=== PATIENT | female | born 1950 | race Caucasian/White ===

== ENCOUNTER → 2018-02-19 14:55 | Outpatient (CLI) | payer OTHER, SELFPAY ==
[2018-02-19 16:09] LABS: Bacteria Urine None Seen
[2018-02-19 16:41] LABS: Add Manual Diff / Slide Review NO; Basophils Percent Auto 0.7 % (0-2); Eosinophils Percent Auto 2.7 % (2-4); Hematocrit 37.3 % (36-46); Hemoglobin 12.7 g/dL (12.0-16.0); Lymphocytes Percent Auto 17.2 % (25-40); Mean Corpuscular HGB Conc 33.9 % (30-36); Mean Corpuscular Hemoglobin 27.1 PG (26-34); Mean Corpuscular Volume 80.1 fL (80-100); Monocytes Percent Auto 5.4 % (3-14); Neutrophils Absolute Auto 6900 /uL (3000-5900); Platelet Count 374 X10^3/uL (150-400); Red Blood Cell Count 4.66 X10^6/uL (4.0-5.2); Red Cell Distribution Width 14.3 % (11.6-14.8); White Blood Cell Count 9.3 X10^3/uL (4.5-11.0)
[2018-02-19 16:46] LABS: Blood Urea Nitrogen 21 mg/dL (7-17); Calcium 9.6 mg/dL (8.4-10.2); Carbon Dioxide 30 mmol/L (22-32); Chloride 97 mmol/L (98-107); Estimated Glomerular Filt Rate > 60.0 mL/min (>60); Glucose 81 mg/dL (80-110); HEMOLYSIS < 15 (0-50); Potassium 3.5 mmol/L (3.4-5.1); Sodium 141 mmol/L (137-145)
[2018-02-19 16:50] LABS: Hemoglobin A1C% w Est Avg Glu 6.8 % (4.0-6.0)
[2018-02-19 16:55] LABS: Appearance Urine UA CLEAR; Bilirubin Urine UA NEGATIVE (NEGATIVE); Color Urine UA YELLOW; Glucose Urine UA 1+ g/dL (Normal); Ketones Urine UA NEGATIVE (NEGATIVE); Leukocyte Esterase Urine UA TRACE (NEGATIVE); Nitrite Urine UA NEGATIVE (Negative); Occult Blood Urine UA 1+ (Negative); Protein Urine UA NEGATIVE (Negative); Specific Gravity Urine UA 1.025 (1.000-1.035); Urobilinogen Urine UA 0.2 E.U./dL (0.2)
[2018-02-19 17:00] LABS: RBC Urine 5-10/HPF (0-5/HPF); Squamous Epithelial Cell Urine 0-1 /HPF; WBC Urine 0-1/HPF (0-5/HPF)
[2018-02-19 17:01] LABS: Mucus Urine 1+ (Negative)
== END ==
PROVIDERS: Family Provider Family Medicine; PCP Family Medicine; Visit Provider Orthopaedic Surgery
DX: Z01.818 Encounter for other preprocedural examination (principal); Z01.812 Encounter for preprocedural laboratory examination; N39.9 Disorder of urinary system, unspecified; R73.09 Other abnormal glucose
CPT/HCPCS: 36415; 80048; 81001; 83036; 85025; 93005

== ENCOUNTER 2018-03-09 08:40 | Inpatient (IN) | payer MEDICARE, SELFPAY ==
[2018-02-19 09:56] VITALS: BMI 27.1
[2018-03-09] VITALS (13 sets, daily range): BP systolic 96–152; BP diastolic 46–66; PULSE 57–93; RESP 12–18; TEMP 35.6–36.6; O2SAT 90–99; BMI 27.1
--- NOTE | 2018-03-09 | DI.RAD.S_ITS ---
PROCEDURE: XR PELVIS 1-2V INDICATIONS: INTEROPERATIVE PELVIS FOR LEFT HIP REPLACEMENT TECHNIQUE: 1 view of the lower pelvis acquired. COMPARISON: [facility], MANUEL, PELVIS W UNILATERAL HIP RIGHT, 01/19/2014, 15:36. [facility] [place], [place], XR PELVIS WITH BILATERAL LATERAL HIPS, 11/26/2017, 15:59. FINDINGS: Bones: Patient is status post left hip arthroplasty, with hardware components in expected positions. The hip joint appears congruent. The visualized bony structures appear intact. Previous right hip arthroplasty is unchanged. Soft tissues: Overlying postoperative changes are noted. No suspicious soft tissue densities. IMPRESSION: New left hip arthroplasty as above. Dictated by: Sheyla Robledo M.D. on 03/09/2018 at 13:08 Approved by: Sheyla Robledo M.D. on 03/09/2018 at 13:09
--- NOTE | 2018-03-09 08:56 | DI.RAD.S_ITS ---
PROCEDURE: XR HIP W PEL IF DONE LT 2V INDICATIONS: post operative left hip TECHNIQUE: AP pelvis and lateral view of the left hip acquired. COMPARISON: [facility] [place], XR PELVIS WITH BILATERAL LATERAL HIPS, 11/26/2017, 15:59. FINDINGS: Bones: Patient is status post left hip arthroplasty, with hardware components in expected positions. The hip joint appears congruent. The visualized bony structures appear intact. Right hip arthroplasty is also noted appearing intact. Soft tissues: Overlying postoperative changes are noted. No suspicious soft tissue densities. IMPRESSION: New left hip arthroplasty as above. Dictated by: Sheyla Robledo M.D. on 03/09/2018 at 13:37 Approved by: Sheyla Robledo M.D. on 03/09/2018 at 13:38
[2018-03-09] MEDS: LACTATED RINGERS 1,000 ML 42 ML IV (09:24)
[2018-03-09] MEDS: VANCOMYCIN 1,000 MG/200 ML FROZ.PIGGY 200 MG IV (09:40)
[2018-03-09] MEDS: ACETAMINOPHEN 325 MG TABLET 975 MG PO ×3 (09:41→20:57)
[2018-03-09] MEDS: CELECOXIB 200 MG CAPSULE PO (09:42)
[2018-03-09] MEDS: PREGABALIN 75 MG CAPSULE PO (09:42)
--- NOTE | 2018-03-09 10:46 | PM.PREOP ---
Pre-operative Note Interval Note Pre-op Check: Yes History & Physical Reviewed by Physician and Yes Exam Performed Changes: No
--- NOTE | 2018-03-09 10:49 | P.OP_ITS ---
Operative Date/Time/Diagnoses Date of procedure: 03/09/18 Time of procedure: 12:46 Pre-op diagnosis: left hip OA, protrusion Post-op diagnosis: same Procedure & Clinicians Procedure: Left total hip arthroplasty Same procedure as scheduled: Yes Indications: The patient has had progressively worsening left hip pain with radiographic changes consistent with arthritis. Non-operative management has failed and the patient has requested total hip replacement. The risks, benefits and alternatives to surgery were discussed with the patient prior to proceeding. Risks discussed included, but were not limited to, failure to relieve pain, leg length discrepancy, dislocation, stiffness, infection, nerve damage, deep venous thrombosis, pulmonary embolism, stroke, coma, heart attack, permanent paralysis and , as well as the potential need for eventual revision of the prosthetic. Surgeon: Payal Meadows Orthopaedic Physician Assistant: Cindy Ellison Anesthesia Type: General and Spinal Operative Notes Findings: severe left hip osteoarthritis with mild protrusio, soft bone Closure Type: primary Specimen(s): none sent Implants & Drains: Meadows and Nephew R3 50, anthology SO 5, -3 head x 32 Applied: drain(s) Estimated Blood Loss (mL): 200 Blood products transfused: none Procedure in detail: The patient was seen in the pre-operative area, where the patient identified the left hip as the operative site and this was marked with my initials. The patient received pre-operative antibiotics and was taken to the operating room and placed on the operative table in the right lateral decubitus position after satisfactory anesthesia. A time cycle operator out was performed. The left leg was prepared from the ankle to the iliac crest with ChloroPrep in the usual fashion and draped through sterile drapes. The hip was approached through an approximately 20 cm incision centered over the greater trochanter and curving gently posteriorly as it went proximally. This was carried sharply to the fascia kenan, which was divided and retracted with a self retaining retractor. The trochanteric bursa was excised with care being taken to avoid the sciatic nerve, which was identified and protected throughout the case. The short external rotators were incised and the capsulomuscular flap was raised and tagged for later repair. The hip was dislocated, and a femoral neck osteotomy performed approximately 10 mm above the lesser trochanter. Retractors were placed around the femur. The canal was opened with a box cutting osteotome, followed by a T handled reamer and a lateralizing reamer. The chili pepper broach was then used, followed by sequential broaching until there was good stability of the broach in the femur. Retractors were placed to expose the acetabulum. The labrum and central soft tissues were removed. Reaming was performed initially going up in 2 mm increments, then 1 mm increments until good bite was obtained with an odd sized reamer. The cup 1 mm larger than the last reamer was then inserted using the appropriate anteversion guides. A trial neutral liner was placed. The broach was placed in the canal. A trial head and neck were then placed and the hip relocated and checked for leg length and stability. An intraoperative film confirmed the component position and no evidence of fracture. The patient was stable in the position of sleep, of squatting, and could be put through a range of motion with 45 degrees internal rotation without dislocation. At 90 degrees flexion, internal rotation to 70 degrees was possible before dislocation. The hip was felt to be long and thus the canal was additionally broached to counter sink it about 3mm. This provided good stability to the broach and hip. This was felt to be satisfactory and the appropriate components were opened, and the trials were removed. The acetabular liner was impacted into position. The final stem was then impacted into the prepared femoral canal. A brief Betadine soak was performed while trialing with head options. The hip was meticulously irrigated with normal saline. Finally the femoral head was impacted onto the stem. The acetabulum was cleared of all material and the hip relocated one final time. Her bone was felt to be soft, but the components were stable. The capsulomuscular flap was then repaired to the greater trochanter though an awl hole using the tag sutures. The short external rotators were repaired with a black braided nylon. A deep drain was placed and brought out anteriorly. The fascia kenan was closed with black braided nylon. The subcutaneous layer was closed with barbed sutures and SteriStrips. An Aquacel Ag dressing was applied and the patient was taken to recovery having tolerated the procedure well. Complications: none Condition: stable Disposition: Acute Care Plan for aftercare: The patient will be maintained on a standard total hip replacement protocol with weight bearing as tolerated and posterior hip precautions. The patient will receive Aspirin and sequential compression devices for DVT prophylaxis. The patient will be discharged home when safe for the home environment.
[2018-03-09] MEDS: CEFAZOLIN 2 GM/100 ML FROZ.PIGGY IV ×2 (11:16→20:55)
--- NOTE | 2018-03-09 11:36 | SUR.OPER ---
Lateral on padded OR bed. Gel axillary roll. Arms secured on padded armboard with pillow supporting top arm. Padded hip positioner braces x4 - anterior and posterior chest and pelvis. Additional gel pad used anterior pelvis. Gel pad under bottom leg from knee to foot and secured with tape over sheet.
[2018-03-09] MEDS: BUPIVACAINE 0.25% W/ EPI VIAL 50 ML INJ (11:43)
[2018-03-09] MEDS: BUPIVACAINE LIPOSOME 266 MG/20 ML VIAL INJ (11:43)
[2018-03-09] MEDS: POVIDONE-IODINE 15 ML, SODIUM CHLORIDE 0.9% 250 ML TOP (11:46)
--- NOTE | 2018-03-09 11:59 | PC.NURSE ---
Day shift: Pt not on AC unit at this time.
[2018-03-09] MEDS: LACTATED RINGERS 1,000 ML 125 ML IV ×2 (14:40→22:14)
[2018-03-09] MEDS: METFORMIN HCL 500 MG TABLET PO (17:20)
[2018-03-09] MEDS: glipiZIDE 5 MG TABLET PO (17:20)
--- NOTE | 2018-03-09 17:27 | PC.NURSE ---
Addendum entered by Nathalie Lynch, R.N. 03/09/18 22:57: 1830: Patient assisted to BS, no void. bladder scan done = 417 ml. 2019: Pt up to BSC, could not void. Bladder scan done = 463. In & out cath done with 600 ml clear yellow urine output. Original Note: Addendum entered by Nathalie Lynch R.N. 03/09/18 19:32: Patient has had no emesis for over an hour, has been dozing. 2L O2 sat 96%, respirations even with no observed distress. Original Note: Addendum entered by Nathalie Lynch, Divine.N. 03/09/18 19:28: Pt nauseated & had emesis x 3. Reports lightheadedness after PT transfered her into recliner, face pale. At some point O2 NC was taken off, I found patient alarming on continuous pulse ox at 82-85% 2L O2 reapplied. IV Zofran given. I found in chart that patient had received spinal anesthesia during surgery, but found no active orders in JUN. I notified Dr Power, the anesthesiologist inspector water pollution control, about this. She said she would enter orders for me. Original Note: Evening note: Monica awake, dozing at times, RA oxygen going as low as 82-84% while talking on phone. Applied 2L O2 with sats now 96-100% Face pale. Just worked with P.T., sitting in recliner, said I threw up a little, PT reports BP was stable after transfer. Pt does report light headed but want to sit here & try to eat some protein. Offered soup/toast or boat outfitting supervisor meal, she said I want to try this. Dietary sent her regular ada meal. I notified Dr Meadows of patient's report of only taking Metformin & Glipizide twice a day--I never take it three times. Order changed to bid. In regard to other order for Lotensin & HCTZ at 1700, I also notified Dr Meadows of borderline BP's of 102/49 and 100/56, she said to hold tonight's BP medications.
--- NOTE | 2018-03-09 17:38 | PT.IIE ---
Current Diagnoses Unilateral primary osteoarthritis, left hip (03/09/18) Surgery Performed Operation Date: 03/09/18 10:45 Actual Procedures p Total Hip Arthroplasty(Left) - Payal Meadows MD Surgical History (Last Updated 02/19/18 @ 10:07 by Valerie Ferrell, RN) History of bilateral tubal ligation (Acute) History of tonsillectomy (Acute) History of total right hip arthroplasty (Acute) Medical History (Last Updated 02/19/18 @ 13:13 by Valerie Ferrell RN) Arthritis (Acute) Arthropathy (Acute) Asthma (Acute) Chronic pain (Acute) Constipation (Acute) Fibromyalgia (Acute) HTN (hypertension) (Acute) History of (Acute) History of headache (Acute) History of pneumonia (Acute) History of use of contraceptive intrauterine device (IUD) (Acute) Hyperlipoproteinemia (Acute) Hypothyroid (Acute) Impaired vision (Acute) Low back pain (Acute) Myofascial pain syndrome (Acute) Myositis, unspecified (Acute) Postmenopausal (Acute) Postmenopausal bleeding (Acute) Skin cancer (Acute) Type II diabetes mellitus (Acute) Uterine polyp (Acute) Physical Therapy Inpatient Evaluation/Re-Eval M1 PT/OT-IP Prior Functional Status Start: 03/09/18 17:20 Freq: NEEDED Status: Active Protocol: Document 03/09/18 17:21 EA (Rec: 03/09/18 17:38 EA [id number]) Medical Review Prior Functional Status Medical History Reviewed Yes Diet/Fluid Consistency Regular Communication Normal Mobility and Gait Indep in all functional transfers and mobility with ability to walk > a block with no use of AD. Activities of Daily Living and IADL's Independent Social History Household Members friend(s) none Living Arrangements Apartment/Condo Number of Floors (Floors) One Floor Number of Stairs To Enter/Railing? 16 steps to get in the main apartment with rails to right side Home Equipment Front Wheel Walker Straight Cane Raised Toilet Seat w/Armrests Employment Status Retired Additional Social History Comment Lives alone; three friends are coming after discharge to hospital and will look after her. M2 PT-IP Current Condition Start: 03/09/18 17:20 Freq: NEEDED Status: Active Protocol: Document 03/09/18 17:21 EA (Rec: 03/09/18 17:38 EA [id number]) Physical Therapy Current Condition Current Condition Evaluation Date 03/09/18 Treatment Diagnosis s/p left DARNELL Onset Date 03/09/18 Precautions Posterior Hip Precautions No Hip Flexion > 90 degrees No Hip Internal Rotation No Hip Adduction Weight Bearing Status Weight Bearing Status Weight Bear as Tolerated M3 PT-IP Subjective Start: 03/09/18 17:20 Freq: NEEDED Status: Active Protocol: Document 03/09/18 17:21 EA (Rec: 03/09/18 17:38 EA [id number]) Subjective Physical Therapy Visit Type Type Initial Evaluation Visit Start Time 16:45 Visit Stop Time 17:25 Total Visit Minutes 40 Number of NURSE MONITORING Visits 0 Physical Therapy Visit Comments Patient Comments Patient would like to try to transfer in the chair for dinner. Patient Goals Patient would like to get independent in all functional transfers and mobility prior to discharge Therapy Pain Assessment Pain When Pain Assessed At Rest Pain Present Pain Present Pain Reported Location Left Posterior Hip Intensity 2 Description Acute M4 PT-IP Mobility and Gait Start: 03/09/18 17:20 Freq: NEEDED Status: Active Protocol: Document 03/09/18 17:21 EA (Rec: 03/09/18 17:38 EA [id number]) PT-Bed Mobility Assessment Supine to Sit Supine to Sit Standby Assistance Sit to Supine Sit to Supine Contact Guard Assistance Scooting Scooting to Edge of Bed Contact Guard Assistance PT-Transfer Assessment Sit to and From Stand Sit to and from Stand Contact Guard Assistance Equipment Transfer Assistive Device Front Wheeled Walker Transfers Transfer Destination Bed Chair Transfer Technique stepping Transfer Ability Level of Assist Contact Guard Assistance Gait Assessment Gait Gait Assistance Required: Contact Guard Assist Able to Maintain Weight Bearing Status Yes During Gait Assistive Devices Assistive Device Front Wheeled Walker Gait Deviations General Gait Pattern Ataxic Decreased Stride Length PT-Balance Assessment Sitting Balance and Reactions Static Sitting Balance Ability Good Dynamic Sitting Balance Ability Good Standing Balance and Reactions Static Standing Balance Ability Good Dynamic Standing Balance Ability Fair M5 PT-IP Objective Assessments Start: 03/09/18 17:20 Freq: NEEDED Status: Active Protocol: Document 03/09/18 17:21 EA (Rec: 03/09/18 17:38 EA [id number]) Orientation Orientation/Cognition Level of Alertness Alert Orientation Name Age Month Date Year Day of Week Place Language Function Ability No Deficits Noted Safety Awareness Understands Safety Issues Memory Description No Deficits Noted Gross Range of Motion Upper Extremity ROM Assessment Within Functional Limits Lower Extremity ROM Assessment Left Impaired Impairments N/A due to hip pre-cautions WFL Strength Upper Extremity Strength Assessment Within Functional Limits Lower Extremity Strength Assessment Left Impaired Hip N/A due to hip pre-caution with at least 3/5 strength Sensation Assessment Sensation Gross Sensation WNL Light Touch Intact Proprioception (Position) Intact M6 PT-IP Treatment Start: 03/09/18 17:20 Freq: NEEDED Status: Active Protocol: Document 03/09/18 17:21 EA (Rec: 03/09/18 17:38 EA [id number]) Physical Therapy Treatment Exercises Exercises Ankle Pumps Gluteal Sets Quad Sets Straight Leg Raises Education Education Provided Precautions Weight Bearing Status Post-Op Packet M7 PT-IP Assessment and Plan Start: 03/09/18 17:20 Freq: NEEDED Status: Active Protocol: Document 03/09/18 17:21 EA (Rec: 03/09/18 17:38 EA [id number]) PT Summary Assessment and Plan Potential Rehabilitation Potential Good Status of Condition at Evaluation Stable Summary Impairments Pain ROM Strength Balance Bed Mobility Transfers Gait Activity Tolerance Assessment Summary Pt demonstrates difficulty in all transfers and ambulation due to pain and weakness to LLE with fair grade standing dynamic balance. Patient requires assistance in all functional mobility and transfers for safety. Patient would benefit with skilled PT to reach functional goals prior to discharge. Goals Bed Mobility Goal Independent Transfer Goal Independent Gait Goal Independent Gait Distance 5 ft Other Goals 16 steps with single rails with CGA/SBA Days to Meet Goals 3 Frequency of Treatment Frequency Of Treatment Twice a Day Treatment Plan Physical Therapy Treatment Plan Bed Mobility Training Transfer Training Gait Training Therapeutic Exercise Balance Retraining Discharge Planning Hot or Cold Pack Neuromuscular Re-ed Coordination Retraining Manual Therapy Recommendations To Nursing Amount of Assist Needed 1 Person Assist Discharge Recommendations PT Discharge Recommendations Home with 28/10 Assist Home Health Other Discharge Recommendations Home health PT
[2018-03-09] MEDS: ONDANSETRON 4 MG/2 ML INJ IV (18:13)
[2018-03-09] MEDS: ASPIRIN EC 81 MG TABLET PO (20:57)
[2018-03-09] MEDS: DOCUSATE 100 MG CAPSULE PO (20:57)
[2018-03-09] MEDS: CYCLOBENZAPRINE 10 MG TABLET PO (21:02)
--- NOTE | 2018-03-09 21:04 | PC.NURSE ---
Pt with >400ml in bladder per bladder scan. In and out cath done per hospital protocol. Pt tolerated well, had 600ml of urine out.
[2018-03-10] VITALS (7 sets, daily range): BP systolic 99–123; BP diastolic 48–66; PULSE 60–82; RESP 16–17; TEMP 36.5–37.8; O2SAT 97–100
[2018-03-10] MEDS: ONDANSETRON 4 MG/2 ML INJ IV (00:44)
[2018-03-10] MEDS: CEFAZOLIN 2 GM/100 ML FROZ.PIGGY IV (03:39)
[2018-03-10 05:56] LABS: Hemoglobin 9.9 g/dL (12.0-16.0)
--- NOTE | 2018-03-10 08:29 | PC.NURSE ---
Pt a&o offers no overt c/o pain, answers questions appropriately. Makes needs known.
[2018-03-10] MEDS: glipiZIDE 5 MG TABLET PO ×2 (08:56→18:16)
[2018-03-10] MEDS: ACETAMINOPHEN 325 MG TABLET 975 MG PO ×3 (08:56→21:56)
[2018-03-10] MEDS: METFORMIN HCL 500 MG TABLET PO ×2 (08:56→18:17)
[2018-03-10] MEDS: DOCUSATE 100 MG CAPSULE PO ×2 (08:57→21:55)
[2018-03-10] MEDS: ASPIRIN EC 81 MG TABLET PO ×2 (08:57→21:54)
[2018-03-10] MEDS: MELOXICAM 7.5 MG TABLET 15 MG PO (08:58)
--- NOTE | 2018-03-10 09:25 | PM.PNPO.1 ---
Subjective Date Patient Seen: 03/10/18 Time Patient Seen: 09:25 Interval history: POD #1 status post left total hip arthroplasty with Dr. Meadows. Patient is having minimal pain today. ASA for DVT prophylaxis. Patient is diabetic and her blood sugars been well controlled. Patient has not mobilized with physical therapy yet. Exam Vital Signs (past 8 hours): - 03/10/18 06:11 03/10/18 07:35 Temperature 97.8 F 98.1 F Pulse Rate 66 60 Respiratory Rate 17 17 Blood Pressure 110/48 L 99/50 L Pulse Oximetry 100 99 Oxygen Delivery Method Nasal Cannula Oxygen Flow Rate 2 Narrative Exam Narrative: Patient is sitting at bedside chair no acute distress. She is alert and oriented x3. Dressing on left hip is CDI. Calves are soft, compressible, and nontender bilaterally. Pulses are symmetrical. Hemovac drain in place. Objective Labs Result Diagrams: 03/10/18 05:40 Labs: Laboratory Results - last 24 hr 03/10/18 05:40 Hgb 9.9 L Hct 29.0 L Assessment & Plan Post-op (1) S/P total hip arthroplasty: Current Visit: Yes Status: Acute Postoperative Procedures Operation Date: 03/09/18 10:45 Actual Procedures Side Surgeon p Total Hip Arthroplasty Left Payal Meadows MD Patient will start mobilizing with physical therapy today. She will follow posterior hip precautions. Continue ASA for DVT prophylaxis. Patient will likely discharge home tomorrow, once mobilizing safely and pain adequately controlled.
[2018-03-10] MEDS: TRAMADOL 50 MG TABLET PO ×2 (09:27→21:55)
--- NOTE | 2018-03-10 10:41 | CM.DANOTE ---
DCP: Case received, EMR reviewed and met with patient. Introduced self and role. DCP template completed with information currently available. Patient is a 67 year old female who admitted yesterday morning to the care of the hospitalist team. PCP: Dr. Rae. Payer: confirmed: Medicare Advantage. Patient came to hospital for procedure, Left Total Hip arthroplasty. Patient has had history of left hip Osteoarthritis. Met with patient in room. Patient alert and oriented. Lives alone in [place], and just moved into apartment upstairs. Stated that she has several friends who will be staying with her. Discussed options, such as outpatient physical therapy versus home health. Stated that it will be difficult for her to go anywhere in the next couple of weeks, since she's living upstairs. Mentioned home health options. Patient stated that she wanted this onsite case manager to discuss with triage nurse, Keshia, at Payal Chandler's office first. Discussed with Keshia. She stated that home health will be a good option for her. Can update patient later today. At this time, will be working with physical therapy team to see how she is doing first, has already been up to chair at this point. Spoke to Rosina at [facility] to see if she takes insurance. She asked to fax over face sheet. Will do so now. P: DCP to continue to follow. Home health may be the best option for patient, P.T/O.T. Karena Toscano RN/Superintendent Job
[2018-03-10] MEDS: INFLUENZA VACCINE 0.5 ML SYRINGE IM (10:49)
--- NOTE | 2018-03-10 11:41 | PT.IPTN ---
Current Diagnoses Unilateral primary osteoarthritis, left hip (03/09/18) Presence of unspecified artificial hip joint (03/09/18) Surgery Performed Operation Date: 03/09/18 10:45 Actual Procedures p Total Hip Arthroplasty(Left) - Payal Meadows MD Physical Therapy Treatment Note M2 PT-IP Current Condition Start: 03/09/18 17:20 Freq: NEEDED Status: Active Protocol: Document 03/09/18 17:21 EA (Rec: 03/09/18 17:38 EA [id number]) Physical Therapy Current Condition Current Condition Evaluation Date 03/09/18 Treatment Diagnosis s/p left DARNELL Onset Date 03/09/18 Precautions Posterior Hip Precautions No Hip Flexion > 90 degrees No Hip Internal Rotation No Hip Adduction Weight Bearing Status Weight Bearing Status Weight Bear as Tolerated M3 PT-IP Subjective Start: 03/09/18 17:20 Freq: NEEDED Status: Active Protocol: Document 03/10/18 11:00 CLB (Rec: 03/10/18 11:41 CLB [id number]) Subjective Physical Therapy Visit Type Type Treatment Note Visit Start Time 11:00 Visit Stop Time 11:25 Total Visit Minutes 25 Number of OIL WELL LOGGING ENGINEER Visits 1 Physical Therapy Visit Comments Patient Comments Pt willing to ambulate then would like to get back to bed. Therapy Pain Assessment Pain When Pain Assessed At Rest Pain Present Pain Present Pain Reported Location Left Posterior Hip Intensity 2 Scale Used Numeric (1 - 10) M4 PT-IP Mobility and Gait Start: 03/09/18 17:20 Freq: NEEDED Status: Active Protocol: Document 03/10/18 11:00 CLB (Rec: 03/10/18 11:41 CLB [id number]) PT-Bed Mobility Assessment Sit to Supine Sit to Supine Contact Guard Assistance Scooting Scooting to Edge of Bed Contact Guard Assistance PT-Transfer Assessment Sit to and From Stand Sit to and from Stand Contact Guard Assistance Equipment Transfer Assistive Device Gait Belt Front Wheeled Walker Transfers Transfer Destination Bed Transfer Technique stepping Transfer Ability Level of Assist Contact Guard Assistance Gait Assessment Comments Gait Comments Pt unable to ambulate due to drop in BP. M5 PT-IP Objective Assessments Start: 03/09/18 17:20 Freq: NEEDED Status: Active Protocol: Document 03/09/18 17:21 EA (Rec: 03/09/18 17:38 EA [id number]) Orientation Orientation/Cognition Level of Alertness Alert Orientation Name Age Month Date Year Day of Week Place Language Function Ability No Deficits Noted Safety Awareness Understands Safety Issues Memory Description No Deficits Noted Gross Range of Motion Upper Extremity ROM Assessment Within Functional Limits Lower Extremity ROM Assessment Left Impaired Impairments N/A due to hip pre-cautions WFL Strength Upper Extremity Strength Assessment Within Functional Limits Lower Extremity Strength Assessment Left Impaired Hip N/A due to hip pre-caution with at least 3/5 strength Sensation Assessment Sensation Gross Sensation WNL Light Touch Intact Proprioception (Position) Intact M6 PT-IP Treatment Start: 03/09/18 17:20 Freq: NEEDED Status: Active Protocol: Document 03/10/18 11:00 CLB (Rec: 03/10/18 11:41 CLB [id number]) Physical Therapy Treatment Exercises Exercises Ankle Pumps Gluteal Sets Quad Sets Straight Leg Raises Education Education Provided Precautions Weight Bearing Status M7 PT-IP Assessment and Plan Start: 03/09/18 17:20 Freq: NEEDED Status: Active Protocol: Document 03/10/18 11:00 CLB (Rec: 03/10/18 11:41 CLB [id number]) PT Summary Assessment and Plan Potential Rehabilitation Potential Good Status of Condition at Evaluation Stable Summary Impairments Pain ROM Strength Balance Bed Mobility Transfers Gait Activity Tolerance Assessment Summary Pt unable to ambulate due to BP. BP in sitting in chair 116 /60, standing 92/56, second standing BP 109/43, supine BP107/58, pt stated she was feeling better second supine BP 115/62. Pt feeling dizziness with standing, pt perform step transfer to bed and assisted to supine. Goals Bed Mobility Goal Independent Transfer Goal Independent Gait Goal Independent Gait Distance 5 ft Other Goals 16 steps with single rails with CGA/SBA Days to Meet Goals 3 Frequency of Treatment Frequency Of Treatment Twice a Day Treatment Plan Physical Therapy Treatment Plan Bed Mobility Training Transfer Training Gait Training Therapeutic Exercise Balance Retraining Discharge Planning Hot or Cold Pack Neuromuscular Re-ed Coordination Retraining Manual Therapy Recommendations To Nursing Amount of Assist Needed 1 Person Assist Discharge Recommendations PT Discharge Recommendations Home with 24/ Assist Home Health Other Discharge Recommendations Home health PT
--- NOTE | 2018-03-10 15:22 | PC.NURSE ---
Ortho: Feels good this afternoon. Had a tough morning, unable to void and had to get I/O cath. BP was 70's systolic per PT and PT was held. [place] much better this afternoon and was able to get up and amb, able to void 550mls. Later got up with PT and reported she was doing much better. Ortho mark no problems, PPP, feet =/warm. Brisk cap refill. Is following her precautions. Pt feels she has turned the corner. Cont w/poc.
--- NOTE | 2018-03-10 16:15 | PT.IPTN ---
Current Diagnoses Unilateral primary osteoarthritis, left hip (03/09/18) Presence of unspecified artificial hip joint (03/09/18) Surgery Performed Operation Date: 03/09/18 10:45 Actual Procedures p Total Hip Arthroplasty(Left) - Payal Meadows MD Physical Therapy Treatment Note M2 PT-IP Current Condition Start: 03/09/18 17:20 Freq: NEEDED Status: Active Protocol: Document 03/09/18 17:21 EA (Rec: 03/09/18 17:38 EA [id number]) Physical Therapy Current Condition Current Condition Evaluation Date 03/09/18 Treatment Diagnosis s/p left DARNELL Onset Date 03/09/18 Precautions Posterior Hip Precautions No Hip Flexion > 90 degrees No Hip Internal Rotation No Hip Adduction Weight Bearing Status Weight Bearing Status Weight Bear as Tolerated M3 PT-IP Subjective Start: 03/09/18 17:20 Freq: NEEDED Status: Active Protocol: Document 03/10/18 14:50 CLB (Rec: 03/10/18 16:15 CLB [id number]) Subjective Physical Therapy Visit Type Type Treatment Note Visit Start Time 14:50 Visit Stop Time 15:20 Total Visit Minutes 30 Number of COMPENSATION CONSULTING MANAGER Visits 2 Physical Therapy Visit Comments Patient Comments Pt willing to get OOB to ambulate and sit in chair. Therapy Pain Assessment Pain When Pain Assessed During Mobility Pain Present Pain Present Pain Reported Location Left Posterior Hip Intensity 1 M4 PT-IP Mobility and Gait Start: 03/09/18 17:20 Freq: NEEDED Status: Active Protocol: Document 03/10/18 14:50 CLB (Rec: 03/10/18 16:15 CLB [id number]) PT-Bed Mobility Assessment Supine to Sit Supine to Sit Standby Assistance Scooting Scooting to Edge of Bed Standby Assistance PT-Transfer Assessment Sit to and From Stand Sit to and from Stand Contact Guard Assistance Equipment Transfer Assistive Device Gait Belt Front Wheeled Walker Transfers Transfer Destination Chair Transfer Technique stepping Transfer Ability Level of Assist Contact Guard Assistance Comments Mobility Comments Pt needs cues for sequencing OOB. Gait Assessment Gait Gait Assistance Required: Contact Guard Assist Distance (Feet) 80 Able to Maintain Weight Bearing Status Yes During Gait Assistive Devices Assistive Device Gait Belt Front Wheeled Walker Gait Deviations General Gait Pattern Antalgic Decreased Feet Clearance Factors Limiting Gait Function Factors Limiting Gait Function Decreased Activity Tolerance Decreased Strength Pain Comments Gait Comments Pt able to ambulate with cues for sequencing steps with FWW. Pt able to ambulate with small step through gait pattern. Stair Climbing Assessment Comments Stair Climbing Comments not tested M5 PT-IP Objective Assessments Start: 03/09/18 17:20 Freq: NEEDED Status: Active Protocol: Document 03/09/18 17:21 EA (Rec: 03/09/18 17:38 EA [id number]) Orientation Orientation/Cognition Level of Alertness Alert Orientation Name Age Month Date Year Day of Week Place Language Function Ability No Deficits Noted Safety Awareness Understands Safety Issues Memory Description No Deficits Noted Gross Range of Motion Upper Extremity ROM Assessment Within Functional Limits Lower Extremity ROM Assessment Left Impaired Impairments N/A due to hip pre-cautions WFL Strength Upper Extremity Strength Assessment Within Functional Limits Lower Extremity Strength Assessment Left Impaired Hip N/A due to hip pre-caution with at least 3/5 strength Sensation Assessment Sensation Gross Sensation WNL Light Touch Intact Proprioception (Position) Intact M6 PT-IP Treatment Start: 03/09/18 17:20 Freq: NEEDED Status: Active Protocol: Document 03/10/18 14:50 CLB (Rec: 03/10/18 16:15 CLB [id number]) Physical Therapy Treatment Exercises Exercises Ankle Pumps Gluteal Sets Quad Sets Heel Slides Supine Hip Abduction Education Education Provided Precautions Weight Bearing Status M7 PT-IP Assessment and Plan Start: 03/09/18 17:20 Freq: NEEDED Status: Active Protocol: Document 03/10/18 14:50 CLB (Rec: 03/10/18 16:15 CLB [id number]) PT Summary Assessment and Plan Potential Rehabilitation Potential Good Status of Condition at Evaluation Stable Summary Impairments Pain ROM Strength Balance Bed Mobility Transfers Gait Activity Tolerance Assessment Summary Pt able to ambulate w/o dizziness. Pt BP in sitting 110/66, standing 106/52 and 123/59 after ambulating 10ft. Pt able to ambulate another 70ft. Pt able to perform all ther ex. Pt needs cues for bed mobility due to precautions and step sequencing with ambulation. Goals Bed Mobility Goal Independent Transfer Goal Independent Gait Goal Independent Gait Distance 5 ft Other Goals 16 steps with single rails with CGA/SBA Days to Meet Goals 3 Frequency of Treatment Frequency Of Treatment Twice a Day Treatment Plan Physical Therapy Treatment Plan Bed Mobility Training Transfer Training Gait Training Therapeutic Exercise Balance Retraining Discharge Planning Hot or Cold Pack Neuromuscular Re-ed Coordination Retraining Manual Therapy Recommendations To Nursing Amount of Assist Needed 1 Person Assist Discharge Recommendations PT Discharge Recommendations Home with 28/10 Assist Home Health Other Discharge Recommendations Home health PT
[2018-03-10] MEDS: hydroCHLOROthiazide 25 MG TABLET PO (18:16)
[2018-03-10] MEDS: BENAZEPRIL 20 MG TABLET 40 MG PO (18:17)
[2018-03-10] MEDS: CYCLOBENZAPRINE 10 MG TABLET PO (21:55)
--- NOTE | 2018-03-10 23:15 | PC.NURSE ---
Monica reports little to no pain, rates it at 1/10 after ambulating in room. Medicated with Tramadol and Flexeril at bedtime per her request. Drsg CDI, hemovac patent. CMS intact. VS stable tonight, RA oxygen 97% Fall precautions in place, pt instructed to call nurse for any needs.
--- NOTE | 2018-03-10 23:23 | PC.NURSE ---
Patient reports good pain control w flexaril and Tramadol combination, no nausea as of this note. good appetite and tolerating meals, no numbness no tingling. calls for help appropriately, no falls or injuries as of this note. Good urine output, passing flatus and +Bts. VSS, afebrile. Report to branden TOBIAS.
[2018-03-11] VITALS: BP 117/59; PULSE 76; RESP 16; TEMP 36.7; O2SAT 96
[2018-03-11 04:00] VITALS: BP 131/63; PULSE 87; RESP 16; TEMP 37; O2SAT 96
--- NOTE | 2018-03-11 06:50 | PC.NURSE ---
Hemovac removed. pt had 20cc out.
[2018-03-11 07:45] VITALS: BP 130/62; PULSE 87; RESP 16; TEMP 36.8; O2SAT 94
--- NOTE | 2018-03-11 08:15 | PM.DS.1 ---
History of Present Illness Date Patient Seen: 03/11/18 Time Patient Seen: 08:16 Chief complaint: 24892 LEFT TOTAL HIP ARTHROPLASTYCOPAY $100.00 Narrative: The patient has had progressively worsening left hip pain with radiographic changes consistent with arthritis. Non-operative management has failed and the patient has requested total hip replacement. The risks, benefits and alternatives to surgery were discussed with the patient prior to proceeding. Risks discussed included, but were not limited to, failure to relieve pain, leg length discrepancy, dislocation, stiffness, infection, nerve damage, deep venous thrombosis, pulmonary embolism, stroke, coma, heart attack, permanent paralysis and , as well as the potential need for eventual revision of the prosthetic. Discharge Providers Date of admission: 03/09/18 08:40 Primary care physician: Nick Rae MD Consults: 03/09/18 08:56 Consult to Anesthesiology Routine Comment: Consulting Provider: Anesthesiologist Reason for consultation: Regional block for post operative pain control 03/09/18 14:26 Consult to Discharge Planning Routine Comment: [facility] Consult to Physical Therapy Evaluate & Treat Comment: Physician Instructions: post op DARNELL protocol Consult to Respiratory Therapy Evaluate & Treat Comment: Physician Instructions: Evaluate and treat Discharge provider: Cindy Ellison PA-C Discharge Date: 03/11/18 Summary Discharge Diagnosis: s/p left total hip arthroplasty Hospital Course: Monica admitted for left total hip arthroplasty with Dr. Meadows, and she consented to procedure. Hospital course was unremarkable. On postop day 2. Patient was ready to go home. She is eating and voiding without difficulty or assistance. She has been up and ambulating with physical therapy throughout her stay. Status at Discharge Functional status at discharge: uses cane/walker Exam Vital Signs (past 8 hours): - 03/11/18 04:00 Temperature 98.6 F Pulse Rate 87 Respiratory Rate 16 Blood Pressure 131/63 Pulse Oximetry 96 Oxygen Delivery Method Room Air Oxygen Flow Rate 0 Narrative Exam Narrative: Patient lying in bed in no acute distress. She is alert and oriented x3. Dressing on left hip is CDI. It is starting to peel up, so nursing will change it prior to discharge. Calves are soft, compressible, nontender bilaterally. Sensation intact light touch throughout bilateral lower extremities. She is able to actively dorsiflex plantar flex. Patient's pain is well controlled with tramadol. She would like to go on this for home pain medication. No complaints this morning. Objective Labs Result Diagrams: 03/10/18 05:40 Discharge Plan Discharge Plan Patient Disposition: Home Discharge comment: Dc home this afternoon Discharge Med Rec/Prescriptions Prescriptions: New tramadol 50 mg Tablet 50 mg PO Q6H PRN (Reason: Pain, Mild (1-3)) Qty: 60 RF: 0 Continue cyclobenzaprine 10 mg Tablet 10 mg PO BEDTIME RF: 0 metformin 500 mg Tablet 500 mg PO TID RF: 0 ibuprofen 200 mg Capsule 400 mg PO QID PRN (Reason: Pain) RF: 0 aspirin 325 mg Tablet,Delayed Release (Dr/Ec) 650 mg PO Q4-6H PRN (Reason: Pain) RF: 0 hydrochlorothiazide 25 mg Tablet 25 mg PO QPM RF: 0 benazepril 40 mg Tablet 40 mg PO QPM RF: 0 glipizide 5 mg Tablet 5 mg PO TID RF: 0 naproxen sodium [Aleve] 220 mg Capsule 220 mg PO BID MDD Not listed PRN (Reason: pain) RF: 0 meloxicam 15 mg Tablet 15 mg PO DAILY RF: 0 Discontinued tramadol 50 mg Tablet 50 mg PO Q6H PRN (Reason: pain) RF: 0 Follow up/Referrals: Payal Meadows MD [Physician] - (Follow up in 5-7 days with LUCY) Provider Discharge Instructions Activity: Posterior hip precautions Skin/Wound/Dressing Care Report to your healthcare provider any signs of infection, such as:: chills, fever and increased pain Visit Report/Discharge Packet Instructions: DI for Hip Replacement Discharge Data Primary Care Provider: Nick Rae Attending Provider: Payal Meadows Admit Date/Time: 03/09/18 08:40
[2018-03-11] MEDS: DOCUSATE 100 MG CAPSULE PO (09:28)
[2018-03-11] MEDS: METFORMIN HCL 500 MG TABLET PO (09:28)
[2018-03-11] MEDS: ASPIRIN EC 81 MG TABLET PO (09:28)
[2018-03-11] MEDS: MELOXICAM 7.5 MG TABLET 15 MG PO (09:28)
[2018-03-11] MEDS: glipiZIDE 5 MG TABLET PO (09:28)
[2018-03-11] MEDS: ACETAMINOPHEN 325 MG TABLET 975 MG PO (09:28)
--- NOTE | 2018-03-11 10:10 | PT.IPTN ---
Current Diagnoses Unilateral primary osteoarthritis, left hip (03/09/18) Presence of unspecified artificial hip joint (03/09/18) Surgery Performed Operation Date: 03/09/18 10:45 Actual Procedures p Total Hip Arthroplasty(Left) - Payal Meadows MD Physical Therapy Treatment Note M2 PT-IP Current Condition Start: 03/09/18 17:20 Freq: NEEDED Status: Active Protocol: Document 03/09/18 17:21 EA (Rec: 03/09/18 17:38 EA [id number]) Physical Therapy Current Condition Current Condition Evaluation Date 03/09/18 Treatment Diagnosis s/p left DARNELL Onset Date 03/09/18 Precautions Posterior Hip Precautions No Hip Flexion > 90 degrees No Hip Internal Rotation No Hip Adduction Weight Bearing Status Weight Bearing Status Weight Bear as Tolerated M3 PT-IP Subjective Start: 03/09/18 17:20 Freq: NEEDED Status: Active Protocol: Document 03/11/18 10:03 SA (Rec: 03/11/18 10:10 SA [id number]) Subjective Physical Therapy Visit Type Type Treatment Note Visit Start Time 08:57 Visit Stop Time 09:30 Total Visit Minutes 33 Number of CLEAN UP PERSON Visits 3 Physical Therapy Visit Comments Patient Comments Pt sitting up in chair and agreeable to PT this AM. Therapy Pain Assessment Pain When Pain Assessed During Mobility Pain Present Pain Present Pain Reported Location Left Posterior Hip Intensity 1 Scale Used Numeric (1 - 10) Pain Management Techniques Re-positioning Timing of Activity with Medications M4 PT-IP Mobility and Gait Start: 03/09/18 17:20 Freq: NEEDED Status: Active Protocol: Document 03/11/18 10:03 SA (Rec: 03/11/18 10:10 SA [id number]) PT-Transfer Assessment Sit to and From Stand Sit to and from Stand Contact Guard Assistance Equipment Transfer Assistive Device Gait Belt Front Wheeled Walker Transfers Transfer Destination Chair Transfer Technique Stand Step Pivot Transfer Ability Level of Assist Contact Guard Assistance Comments Mobility Comments Pt manages FWW well with good safety awarenss, able to recite hip precautions. Gait Assessment Gait Gait Assistance Required: Contact Guard Assist Distance (Feet) 100 Able to Maintain Weight Bearing Status Yes During Gait Assistive Devices Assistive Device Gait Belt Front Wheeled Walker Gait Deviations General Gait Pattern Antalgic Decreased Stride Length Decreased Feet Clearance Factors Limiting Gait Function Factors Limiting Gait Function Decreased Activity Tolerance Decreased Strength Pain Comments Gait Comments Cues for upright posture and increasing WBing through LLE. Perkins walks around room and into adam totaling about 100 feet. Stair Climbing Assessment Evaluation Level of Assist On Stairs Contact Guard Assistance Devices Stair Climbing Assistive Devices Left Railing Right Railing Technique/Endurance Stair Climbing Direction Ascend and Descend Stair Climbing Technique Step to Step Number of Steps Climbed 3 Query Text: Stair Climbing Set # Repetitions (reps) 2 Comments Stair Climbing Comments Cues for safe technique, pt able to ascend/descend safely with CGA and B or single rail with increased time. M5 PT-IP Objective Assessments Start: 03/09/18 17:20 Freq: NEEDED Status: Active Protocol: Document 03/09/18 17:21 EA (Rec: 03/09/18 17:38 EA [id number]) Orientation Orientation/Cognition Level of Alertness Alert Orientation Name Age Month Date Year Day of Week Place Language Function Ability No Deficits Noted Safety Awareness Understands Safety Issues Memory Description No Deficits Noted Gross Range of Motion Upper Extremity ROM Assessment Within Functional Limits Lower Extremity ROM Assessment Left Impaired Impairments N/A due to hip pre-cautions WFL Strength Upper Extremity Strength Assessment Within Functional Limits Lower Extremity Strength Assessment Left Impaired Hip N/A due to hip pre-caution with at least 3/5 strength Sensation Assessment Sensation Gross Sensation WNL Light Touch Intact Proprioception (Position) Intact M6 PT-IP Treatment Start: 03/09/18 17:20 Freq: NEEDED Status: Active Protocol: Document 03/11/18 10:03 SA (Rec: 03/11/18 10:10 [id number]) Physical Therapy Treatment Exercises Exercises Ankle Pumps Gluteal Sets Quad Sets Heel Slides Supine Hip Abduction Education Education Provided Precautions Weight Bearing Status M7 PT-IP Assessment and Plan Start: 03/09/18 17:20 Freq: NEEDED Status: Active Protocol: Document 03/11/18 10:03 SA (Rec: 03/11/18 10:10 [id number]) PT Summary Assessment and Plan Potential Rehabilitation Potential Good Status of Condition at Evaluation Stable Frequency of Treatment Frequency Of Treatment Twice a Day Recommendations To Nursing Amount of Assist Needed 1 Person Assist Discharge Recommendations PT Discharge Recommendations Home with 24/7 Assist Home Health Other Discharge Recommendations Home health PT
--- NOTE | 2018-03-11 12:43 | CM.DPC ---
DCP: continued: Case received and pt with d/c to home orders. EMR reviewed and noted plan for home with [facility]. Requested that DAVIE Blanton follow up on the Mary ROMANO referral that was initiated yesterday by Rahul Yang (see her pending notes). Met then with pt and her friend. Pt says she is eager for home. This is her second hip replacement so she is feeling comfortable with her home plan. Is looking for PT and OT to do some further checking with her in her apt setting to make sure she is following her precautions there. Has friends for support but no one to stay the night and I am very comfortable with that.. Frank reported that Rosina/Mary ROMANO had confirmed that the payer: apparently an [place] [facility] plan will accept pt and can go out in a timely way. Final HH orders received and Frank will fax now. Mary ROMANO brochure given to pt.
--- NOTE | 2018-03-11 13:33 | CM.DPC ---
Spoke with Rosina Mckenna regarding [employer] [place]. They [place] and will open for service.
--- NOTE | 2018-03-11 13:48 | CM.DPC ---
Discharge packet faxed to Mary Morin
== END 2018-03-11 12:38 | disposition home health service (06) | DRG 470 ==
PROVIDERS: Admitting Provider Orthopaedic Surgery; Family Provider Family Medicine; PCP Family Medicine; Visit Provider Orthopaedic Surgery
PROC: 0SRB0JZ Replacement of Left Hip Joint with Synthetic Substitute, Open Approach (ICD-10-PCS; CPT 27130; principal; 2018-03-09 10:45)
DX: M16.12 Unilateral primary osteoarthritis, left hip (principal); E11.9 Type 2 diabetes mellitus without complications; I10 Essential (primary) hypertension; M79.7 Fibromyalgia; Z96.641 Presence of right artificial hip joint; Z79.84 Long term (current) use of oral hypoglycemic drugs; E78.5 Hyperlipidemia, unspecified
CPT/HCPCS: 36415; 72170; 73502; 82962; 85014; 85018; 90471; 90656; 94760; 97110; 97116; 97161; 97530; 97535; C1776; C9290; J0690; J2250; J2274; J2405; J2704; J3010; J3370; Q2038

== ENCOUNTER → 2018-06-29 11:17 | Outpatient (CLI) | payer OTHER, MEDICARE, SELFPAY ==
[2018-03-09 14:32] VITALS: BMI 27.1
--- NOTE | 2018-06-29 | DI.RAD.S_ITS ---
PROCEDURE: XR CHEST 2V INDICATIONS: COUGH TECHNIQUE: 2 views of the chest were acquired. COMPARISON: [facility], , CHEST 2 VIEW, 03/28/2017, 17:17. None. FINDINGS: Surgical changes and devices: None. Lungs and pleura: Lungs are clear. No pleural effusions or pneumothorax. Mediastinum: Mediastinal contours are normal. Heart size is normal. Bones and chest wall: No suspicious bony abnormalities. Soft tissues appear unremarkable. IMPRESSION: No acute cardiopulmonary disease. Dictated by: Olayinka Pleitez M.D. on 06/29/2018 at 14:14 Approved by: Olayinka Pleitez M.D. on 06/29/2018 at 14:16
--- NOTE | 2018-06-29 | DI.MG.S_ITS ---
BILATERAL DIGITAL SCREENING MAMMOGRAM 3D/2D WITH CAD: 06/29/2018 CLINICAL: Routine screening. Comparison is made to exams dated: 03/13/2016 mammogram - [facility] and 08/11/2009 mammogram - [facility]. There are scattered fibroglandular elements in both breasts. Current study was also evaluated with a Computer Aided Detection (CAD) system. There is a mole marker on the left breast. No significant masses, calcifications, or other findings are seen in either breast. There has been no significant interval change. IMPRESSION: NEGATIVE There is no mammographic evidence of malignancy. A 1 year screening mammogram is recommended. This exam was interpreted at Station ID: [id number]. NOTE: For mammograms, a report in lay terms will be sent to the patient. Approximately 15% of breast malignancies will not be visualized mammographically. In the management of a palpable breast mass, a negative mammogram must not discourage biopsy of a clinically suspicious lesion. Electronically Signed By: Tomasz slaughter/catalina:06/29/2018 18:17:06 letter sent: Normal Exam ACR BI-RADS Category 1: Negative [id number]
--- NOTE | 2018-07-03 15:49 | PM.PFT.1 ---
Pulmonary Function Test Referral & Results Date Patient Seen: 06/29/18 Requesting provider: Nick Rae Indication: J17 Results: The spirometry demonstrates an FVC of 2.15 L which is 73% of predicted. The FEV1 was measured at 1.50 L which is 60% of predicted. The FEV1/FVC ratio was 70 which is 92% of predicted. Following the administration of bronchodilator there was 52% improvement in FEF 25-75%. Lung volumes show an SVC of 2.33 L which is 83% of predicted. The diffusing capacity was measured at 17.43 which is 76% of predicted. No hemoglobin value was provided, so no correction for potential anemia could be made, if appropriate. The maximum voluntary ventilation was reduced Interpretation: This study demonstrates moderately severe obstructive lung disease based on reduction in FEV1. There is some evidence of limited benefit following bronchodilator based on improvement in FEF 25-75% as above There is minimal reduction in lung volumes suggesting perhaps mild restrictive lung disease There is also minimal reduction in diffusing capacity suggesting some element of disease the capillary alveolar level Clinical correlation suggested
== END ==
PROVIDERS: PCP Family Medicine; Visit Provider Family Medicine
DX: Z12.31 Encounter for screening mammogram for malignant neoplasm of breast (principal); J18.8 Other pneumonia, unspecified organism; R05 Cough
CPT/HCPCS: 71046; 77063; 77067; 94060; 94726; 94729

== ENCOUNTER 2018-08-14 08:57 | Day surgery (SDC) | payer MEDICARE, SELFPAY ==
[2018-03-09 14:32] VITALS: BMI 27.1
[2018-07-30 15:12] VITALS: BMI 26.9
--- NOTE | 2018-08-14 | PATH_ITS ---
[facility] Accession Number: [id number] . 01 Material submitted: . PART A: endometrium - ENDOMETRIAL CURRETTAGE PART B: endometrium - ENDOMETRIAL BIOPSIES . 02 Diagnosis: A. Endometrial Curettings: Endometrial adenocarcinoma, favor high grade. Please see comment. . B. Endometrial Biopsies: Endometrial adenocarcinoma, favor high grade. Please see comment. MRV/08/17/2018 . 02 Comment: Parts A and B: The adenocarcinoma demonstrates focal clear cell differentiation; complete characterization may best be performed on the excised specimen. . Results discussed with Dr. Kim on 08/17/2018 at approximately 2:40 p.m. . The slides were reviewed by my colleagues, Drs. Riggins and Jenny. . 02 Electronically signed: . Malka Luevano MD, Pathologist NPI- [id number] . 01 Gross description: . Part A: ENDOMETRIAL CURRETTAGE: Received in formalin are minute fragments of mucoid and hemorrhagic material measuring 2.5 x 2.0 x 0.5 cm in aggregate. Submitted in toto in 1 cassette. Part B: ENDOMETRIAL BIOPSIES: Received in formalin are minute fragments of mucoid and hemorrhagic material measuring 2.5 x 2.2 x 0.5 cm in aggregate. Submitted in toto in 1 cassette. /CKI /CKI . 02 Pathologist provided ICD-10: C54.1 . 02 CPT . 181164, [id number] Performed at: 01 [facility] [address] [place] [address], [place], [place] [id number] MD Kike Meza MD Phone: [phone] Performed at: 02 [facility] [address] [place], [place] [id number] MD Rosita Riggins MD Phone: [phone]
[2018-08-14 09:13] VITALS: BP 110/72; PULSE 90; RESP 15; TEMP 36.8; O2SAT 97; BMI 26.9
[2018-08-14] MEDS: LACTATED RINGERS 1,000 ML 100 ML IV (09:38)
--- NOTE | 2018-08-14 09:42 | P.HPOB_ITS ---
History of Present Illness Reason for admission: vaginal bleeding (post menopausal bleeding) Narrative: Monica Quiroz is a 68 year old female admitted for hysteroscopy D+C for postmenopausal bleeding [facility] Medical History (Updated 08/14/18 @ 09:42 by Sheila Kim MD) Endocervical polyp (Acute ~2018) Obstructive lung disease (Acute) Arthritis (Acute) Arthropathy (Acute) Asthma (Acute) Chronic pain (Acute) Constipation (Acute) Fibromyalgia (Acute) HTN (hypertension) (Acute) History of (Acute) History of headache (Acute) History of pneumonia (Acute) History of use of contraceptive intrauterine device (IUD) (Acute) Hyperlipoproteinemia (Acute) Hypothyroid (Acute) Impaired vision (Acute) Low back pain (Acute) Myofascial pain syndrome (Acute) Myositis, unspecified (Acute) Postmenopausal (Acute) Postmenopausal bleeding (Acute) Skin cancer (Acute) Type II diabetes mellitus (Acute) Uterine polyp (Acute) Surgical History (Updated 07/30/18 @ 15:19 by Petty Rankin RN) History of total left hip arthroplasty (Acute 03/11/18) History of bilateral tubal ligation (Acute) History of tonsillectomy (Acute) History of total right hip arthroplasty (Acute) Social History household members: friend(s) and none Smoking Status: Never smoker alcohol intake: current Social History household members: friend(s) and none Smoking Status: Never smoker alcohol intake: current Meds Home Medications Medication Instructions Recorded Confirmed Type aspirin 650 mg PO Q4-6H PRN 02/19/18 07/08/18 History benazepril 40 mg PO QPM 02/19/18 07/30/18 History cyclobenzaprine 10 mg PO BEDTIME 02/19/18 07/30/18 History glipizide 5 mg PO TID 02/19/18 07/30/18 History hydrochlorothiazide 25 mg PO QPM 02/19/18 07/30/18 History ibuprofen 400 mg PO QID PRN 02/19/18 07/30/18 History metformin 500 mg PO TID 02/19/18 07/30/18 History naproxen sodium [Aleve] 220 mg PO BID PRN MDD Not listed 02/19/18 07/30/18 History meloxicam 15 mg PO DAILY 12/03/18 04/25/19 History tramadol 50 mg PO BEDTIME 08/14/18 08/14/18 History Allergies Allergy/AdvReac Type Severity Reaction Status Date / Time cephalexin Allergy Unknown Rash Verified 08/14/18 09:14 Review of Systems Review of Systems Patient with unusual vaginal discharge and bleeding postmenopausal without pain. All systems reviewed & are unremarkable except as noted in HPI and below Exam Vital Signs (past 8 hours): - 08/14/18 09:13 Temperature 98.3 F Pulse Rate 90 Respiratory Rate 15 Blood Pressure 110/72 Pulse Oximetry 97 Oxygen Delivery Method Room Air Narrative Exam Narrative: Chief Complaint: post menopausal bleeding Note: Principal diagnosis: postmenopausal bleeding with thicked endometrium on US Planned procedure: hysteroscopy, D+C removal of any intrauterine pathology History of present illness: Patient is a 68-year-old who has been having intermittent mucousy, watery vaginal discharge and bleeding. She had a Pap smear that was unsatisfactory but negative high-risk HPV and removal of a benign endocervical polyp 1 year ago. She continued to have bleeding and so underwent a vaginal ultrasound on 11/26/2017 that showed a complex avascular fluid collection within the endometrial canal with the endometrium measuring 8.9 mm. Patient was to be scheduled for hysteroscopy D&C however she ended up having a hip replacement so delayed her surgery. The physician she was seeing at would be has since left the practice so she came me to me for evaluation. Patient has continued to have bleeding sometimes heavier since the last ultrasound. Patient is ready to proceed with hysteroscopy D&C. Physical exam: HEENT exam within normal limits. Lungs are clear to au scultation and percussion. Abdomen is soft, nontender. normal external genitalia, vagina, cervix. Uterus is not enlarged nontender. No adnexal masses or tenderness. Extremities without edema and nontender. Consent form was reviewed with the patient. Risk of perforation causing damage to internal structures, infection, bleeding, complication from anesthetic were discussed with patient. Consent form was signed and questions answered. Copy offered to the patient. Assessment & Plan (1) Postmenopausal bleeding: Current visit: Yes Status: Acute Assessment & Plan narrative: Patient with postmenopausal bleeding and unusual discharge here for hysteroscopy D&C. Patient states she has pain medicine at home does not need any further pain medicine. Time Spent With Patient Time with patient: less than 15 minutes
--- NOTE | 2018-08-14 09:42 | PM.PREOP ---
Pre-operative Note Interval Note History & Physical reviewed/Exam performed by Physician: Yes Changes to H&P: No
--- NOTE | 2018-08-14 10:26 | SUR.OPER ---
Lithotomy on padded OR bed, head on pillow, arms secured on padded arm boards at <90 degrees abduction. Legs secured in padded yellow fins stirrups.
--- NOTE | 2018-08-14 10:36 | PM.OP.1 ---
Operative Date/Time/Diagnoses Date of procedure: 08/14/18 Time of procedure: 10:36 Pre-op diagnosis: Postmenopausal bleeding Post-op diagnosis: same Procedure & Clinicians Procedure: Hysteroscopy D&C with resection endometrium Same procedure as scheduled: Yes Indications: Postmenopausal bleeding Surgeon: Sheila Kim Click Yes if Unassisted: Yes Anesthesia Type: General Operative Notes Findings: Thickened endometrium with frondlike projections likely endometrial carcinoma Closure Type: not applicable Specimen(s): other (D&C and resected areas of endometrial lining) Estimated Blood Loss (mL): 5 Blood products transfused: none Procedure in detail: The patient was brought to the operating room where she underwent general anesthesia. She was placed in low stirrups She was prepped and draped in usual sterile fashion with pulsatile stockings in place and functional, warming in place. Her bladder was drained with in and out catheter. A single-tooth tenaculum was placed on the anterior lip of the cervix and the uterus dilated to #8 Hegar dilator. The hysteroscope was placed into the uterus with a sorbitol solution running and under constant suction. A curettage was performed. The resecting loop set at 80 W of cutting was used to resect did some deeper areas of the endometrium. The endometrial curettage and biopsies were sent to pathology. The patient went to recovery room in good condition counts of instruments and sponges were correct. Estimated blood loss less than 5 mL. The sorbitol solution I=O approximately 3000 mL. Complications: none Condition: stable Disposition: same day surgery Plan for aftercare: Treatment of follow-up based on biopsy results
[2018-08-14 10:38] VITALS: BP 112/55; PULSE 86; RESP 11; TEMP 36.3; O2SAT 93
[2018-08-14 10:48] VITALS: BP 112/58; PULSE 86; RESP 11; O2SAT 93
[2018-08-14 11:09] VITALS: BP 112/63; PULSE 84; RESP 16; TEMP 36.6; O2SAT 95
--- NOTE | 2018-08-14 11:10 | SUR.PHASEII ---
pt tolerating po fluids, denies any pain or discomfort, waiting to speak with Dr Kim
--- NOTE | 2018-08-14 11:20 | SUR.PHASEII ---
DR LOERA AT BEDSIDE SPEAKING WITH PT
[2018-08-14 11:30] VITALS: BP 118/76; PULSE 81; RESP 14; TEMP 36.4; O2SAT 98
== END 2018-08-14 11:40 | disposition home or self-care (01) ==
PROVIDERS: PCP Family Medicine; Visit Provider Specialist
PROC: 0UDB8ZZ Extraction of Endometrium, Via Natural or Artificial Opening Endoscopic (ICD-10-PCS; CPT 58558; principal; 2018-08-14 10:00)
DX: C54.1 Malignant neoplasm of endometrium (principal); I10 Essential (primary) hypertension; M79.7 Fibromyalgia; E03.9 Hypothyroidism, unspecified; E11.9 Type 2 diabetes mellitus without complications; Z79.84 Long term (current) use of oral hypoglycemic drugs
CPT/HCPCS: 58558; J1100; J1885; J2704; J3010

== ENCOUNTER 2018-10-29 13:09 | Day surgery (SDC) | payer MEDICARE, SELFPAY ==
[2018-03-09 14:32] VITALS: BMI 27.1
[2018-10-22 12:21] VITALS: BMI 27.1
[2018-10-29] VITALS (10 sets, daily range): BP systolic 132–159; BP diastolic 73–91; PULSE 72–96; RESP 12–19; TEMP 36.3–37.3; O2SAT 94–99; BMI 27.1
[2018-10-29] MEDS: LACTATED RINGERS 1,000 ML 100 ML IV (14:41)
[2018-10-29] MEDS: INSULIN REGULAR 100 UNIT/ML 3 ML VIAL IV (14:46)
--- NOTE | 2018-10-29 15:02 | PM.HP.1 ---
History of Present Illness Date Patient Seen: 10/29/18 Time Patient Seen: 15:00 Chief complaint: [id number] PORT PLACEMENT Narrative: The patient is a woman who has endometrial cancer. She has lymph node involvement. She is brought in to have a Port-A-Cath placed. Patient History Medical History History of hysterectomy (Acute ~09/2018) Arthritis (Chronic) Arthropathy (Chronic) Asthma (Chronic) Chronic pain (Chronic) Constipation (Chronic) Endocervical polyp (Chronic ~2017) Fibromyalgia (Chronic ~1999) HTN (hypertension) (Chronic) History of headache (Chronic) History of use of contraceptive intrauterine device (IUD) (Chronic) Hyperlipoproteinemia (Chronic) Hypothyroid (Chronic) Impaired vision (Chronic) Low back pain (Chronic) Myofascial pain syndrome (Chronic) Myositis, unspecified (Chronic) Obstructive lung disease (Chronic) Postmenopausal (Chronic) Postmenopausal bleeding (Chronic) Rosacea (Chronic) Skin cancer (Chronic ~2003) Type II diabetes mellitus (Chronic ~2007) Uterine polyp (Chronic) Chicken pox (Resolved) History of pneumonia (Resolved) Measles (Resolved) Mumps (Resolved) Surgical History Anesthesia (Resolved) History of (Resolved) History of bilateral tubal ligation (Resolved) History of tonsillectomy (Resolved) History of total left hip arthroplasty (Resolved 03/11/18) History of total right hip arthroplasty (Resolved ~01/2014) Family History (Updated 08/22/18 @ 20:49 by Zoie Novoa) Father Stroke Mother Cancer Social History household members: friend(s) and none Smoking Status: Never smoker alcohol intake: current Family & Social History Family History Father Stroke Mother Cancer Social History: household members friend(s),none Prior Living Arrangements Apartment/Condo Safety & Behavioral: Feels Safe in Current Yes Environment Been Physically Hurt or No Threatened By a Person Suicidal Ideation Description None Suicide Plan Description No Plan Tobacco & Substance use: Smoking Status Never smoker alcohol intake current alcohol intake frequency holiday/special occasion Substance Use Type does not use Meds Home Medications Medication Instructions Recorded Confirmed Type aspirin 650 mg PO Q4-6H PRN 02/19/18 10/29/18 History benazepril 40 mg PO QPM 02/19/18 10/29/18 History cyclobenzaprine 10 mg PO BEDTIME 02/19/18 10/29/18 History glipizide 5 mg PO BID 02/19/18 10/29/18 History hydrochlorothiazide 25 mg PO QPM 02/19/18 10/29/18 History ibuprofen 400 mg PO QID PRN 02/19/18 10/29/18 History naproxen sodium [Aleve] 220 mg PO BID PRN MDD Not listed 02/19/18 10/29/18 History meloxicam 15 mg PO DAILY 03/09/18 10/29/18 History tramadol 50 mg PO BEDTIME 08/14/18 10/29/18 History celecoxib [Celebrex] 100 mg PO BID 10/29/18 10/29/18 History levocetirizine 5 mg PO QPM 10/29/18 10/29/18 History Allergies Allergy/AdvReac Type Severity Reaction Status Date / Time cephalexin Allergy Unknown Rash Verified 10/29/18 14:29 Review of Systems Review of Systems All systems reviewed & are unremarkable except as noted in HPI and below Exam Vital Signs (past 8 hours): - 10/29/18 14:17 Temperature 97.5 F L Pulse Rate 96 H Respiratory Rate 16 Blood Pressure 132/76 Pulse Oximetry 94 Oxygen Delivery Method Room Air Narrative Exam Narrative: Co Operative no apparent distress. Lungs are clear to auscultation no rales or rhonchi. Heart regular rate and rhythm no murmur gallop. Abdomen is soft nontender without mass. No nodes in the neck or supraclavicular areas. No rashes on the surface of the skin of her chest. Assessment & Plan Assessment & Plan narrative: Endometrial cancer. Plan is to place a port. I have discussed the procedure and rationale with her. Risks of bleeding, infection, lung collapse which might require the placement of a chest tube, and blood clot with arm swelling and possible pulmonary embolism all discussed. She appears to understand wishes to proceed.
[2018-10-29] MEDS: CLINDAMYCIN 900 MG/50 ML PIGGYBACK 50 MG IV (15:18)
--- NOTE | 2018-10-29 15:22 | PM.PREOP ---
Pre-operative Note Interval Note History & Physical reviewed/Exam performed by Physician: Yes Changes to H&P: No
--- NOTE | 2018-10-29 15:42 | SUR.OPER ---
Supine on padded OR bed, head on pillow, right arms secured on padded arm board at <90 degrees abduction, left arm tucked at side, legs uncrossed, safety belt at thigh, tape over blanket over lower legs.
[2018-10-29] MEDS: HEPARIN 5,000 UNIT, SODIUM CHLORIDE 0.9% 50 ML IV (15:49)
[2018-10-29] MEDS: LIDOCAINE 1% 30 ML INJ INJ (15:50)
--- NOTE | 2018-10-29 15:59 | DI.RAD.S_ITS ---
PROCEDURE: XR CHEST 1V INDICATIONS: Post OP TECHNIQUE: One view of the chest was acquired. COMPARISON: [facility], CR, XR CHEST 2V, 06/29/2018, 13:19. FINDINGS: Surgical changes and devices: Left-sided port with the catheter tip terminating in the mid SVC. Lungs and pleura: Lungs are clear. No pleural effusions or pneumothorax. Mediastinum: Mediastinal contours appear normal. Heart size is normal. Bones and chest wall: No suspicious bony lesions. Overlying soft tissues appear unremarkable. IMPRESSION: New left-sided port with the catheter tip terminating in the middle third of the SVC. No pneumothorax. Dictated by: Jeffry Escalera M.D. on 10/29/2018 at 16:41 Approved by: Jeffry Escalera M.D. on 10/29/2018 at 16:45
--- NOTE | 2018-10-29 16:19 | P.OP_ITS ---
Operative Date/Time/Diagnoses Date of procedure: 10/29/18 Time of procedure: 16:14 Pre-op diagnosis: Endometrial cancer in need of IV access for chemotherapy Post-op diagnosis: same Procedure & Clinicians Procedure: Left subclavian Port-A-Cath placement Same procedure as scheduled: Yes Indications: IV access Surgeon: Marcelo Hernandez Click Yes if Unassisted: Yes Anesthesia Type: General Operative Notes Findings: Tip in the SVC. No obvious pneumothorax Closure Type: primary Specimen(s): none sent Prosthetic devices, grafts, tissues, transplants, or devices: Port low profile Estimated Blood Loss (mL): 7 Blood products transfused: none Procedure in detail: Patient was placed supine on the operating room table and underwent general LMA anesthesia. A roll was placed routine her shoulders and she was prepped and draped in the usual fashion. Local anesthetic was infiltrated in field block fashion beneath the left clavicle. Transverse incision was made and the patient was placed in Trendelenburg. Needle was inserted into the subclavian vein. Guidewire was passed and the needle removed. Initially the guidewire was not advancing properly so I removed it, reinserted the needle and passed it again. This time removed appropriately and the needle was removed. Pocket was created inferior to the incision. The catheter was put together with the port and the port placed in the pocket. The catheter was tapered to appropriate length. Dilator and introducer were passed over the guidewire under fluoroscopic visualization. The guidewire and dilator removed leaving the introducer in place. The catheter was passed through it and the introducer was removed by peeling it away. The catheter tip appeared to be in the mid to distal SVC. The port was aspirated and flushed with heparinized malgorzata ine. It was secured to the chest all with 2 0 Prolene. The subcu was closed with interrupted 3 0 Vicryl and skin was closed running 4 0 Vicryl subcuticular stitch and Steri-Strips. Dressing was applied and the patient was awakened, extubated taken recovery area in good condition. Chest x-ray was performed postop period. There was no evidence of a lung collapse and the tip is in good position in the SVC Complications: none Condition: stable Disposition: PACU Plan for aftercare: Follow-up in the office either before or after a chemo treatment
[2018-10-29] MEDS: OXYCODONE/ACETAMINOPHEN 5/325 TABLET 1 TAB PO (17:20)
== END 2018-10-29 17:47 | disposition home or self-care (01) ==
PROVIDERS: PCP Family Medicine; Visit Provider Specialist
PROC: (CPT 36561; principal; 2018-10-29 14:45)
DX: C54.1 Malignant neoplasm of endometrium (principal); Z45.2 Encounter for adjustment and management of vascular access device; J45.909 Unspecified asthma, uncomplicated; M79.7 Fibromyalgia; I10 Essential (primary) hypertension; E03.9 Hypothyroidism, unspecified; E11.9 Type 2 diabetes mellitus without complications
CPT/HCPCS: 36561; 71045; C1788; J1644; J2704; J3010

== ENCOUNTER 2019-01-04 08:29 | Day surgery (SDC) | payer MEDICARE, SELFPAY ==
[2018-03-09 14:32] VITALS: BMI 27.1
[2019-01-01 15:00] VITALS: BMI 26.6
[2019-01-04] VITALS (12 sets, daily range): BP systolic 87–160; BP diastolic 50–73; PULSE 59–97; RESP 9–99; TEMP 36.2–37; O2SAT 92–99; BMI 25.9
[2019-01-04] MEDS: LACTATED RINGERS 1,000 ML 100 ML IV (09:05)
[2019-01-04] MEDS: INSULIN REGULAR 100 UNIT/ML 3 ML VIAL SUBCUT (09:21)
--- NOTE | 2019-01-04 09:26 | P.HP_ITS ---
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 She would like to have her port removed. She is quite certain she will not change her mind. Patient History Medical History Arthritis (Chronic) Arthropathy (Chronic) Asthma (Chronic) Chicken pox (Resolved) Chronic pain (Chronic) Constipation (Chronic) Diabetes (Acute) Endocervical polyp (Chronic ~2017) Fibromyalgia (Chronic ~1999) History of headache (Chronic) History of hysterectomy (Acute ~09/2018) History of pneumonia (Resolved) History of use of contraceptive intrauterine device (IUD) (Chronic) HTN (hypertension) (Chronic) Hyperlipoproteinemia (Chronic) Hypothyroid (Chronic) Impaired vision (Chronic) Low back pain (Chronic) Measles (Resolved) Mumps (Resolved) Myofascial pain syndrome (Chronic) Myositis, unspecified (Chronic) Neuropathy (Acute) Obstructive lung disease (Chronic) Pneumonia (Acute ~2018) Port-A-Cath in place (Acute 10/29/18) Postmenopausal (Chronic) Postmenopausal bleeding (Chronic) Rosacea (Chronic) Skin cancer (Chronic ~2003) Type II diabetes mellitus (Chronic ~2007) Uterine polyp (Chronic) Surgical History Anesthesia (Resolved) History of (Resolved) History of bilateral tubal ligation (Resolved) History of tonsillectomy (Resolved) History of total left hip arthroplasty (Resolved 03/11/18) History of total right hip arthroplasty (Resolved ~01/2014) Family History Father Stroke Mother Cancer Social History household members: friend(s) and none Smoking Status: Never smoker alcohol intake: current Family & Social History Family History Father Stroke Mother Cancer Social History: household members friend(s),none Tobacco & Substance use: Smoking Status Never smoker alcohol intake current alcohol intake frequency holiday/special occasion Substance Use Type does not use Meds Home Medications and Allergies Home Medications Medication Instructions Recorded Confirmed Type aspirin 650 mg PO Q4-6H PRN 02/19/18 01/04/19 History benazepril 40 mg PO QPM 02/19/18 01/04/19 History cyclobenzaprine 10 mg PO BEDTIME 02/19/18 01/04/19 History glipizide 5 mg PO BID 02/19/18 01/04/19 History hydrochlorothiazide 25 mg PO QPM 02/19/18 01/04/19 History naproxen sodium [Aleve] 220 mg PO BID PRN MDD Not listed 02/19/18 01/04/19 History tramadol 50 mg PO BEDTIME 08/14/18 01/04/19 History celecoxib [Celebrex] 100 mg PO BID 10/29/18 01/04/19 History metformin 500 mg PO BID 01/04/19 01/04/19 History Allergies Allergy/AdvReac Type Severity Reaction Status Date / Time cephalexin Allergy Mild Bumps on Verified 01/04/19 09:06 my face Review of Systems Review of Systems Narrative: Had pneumonia in the the summer. She has recovered from that. No chest pain. No black or bloody bowel movements. No seizures. She is diabetic but does not use insulin. Exam Vital Signs (past 8 hours): - 01/04/19 09:11 Temperature 98.6 F Pulse Rate 97 H Respiratory Rate 16 Blood Pressure 102/67 Pulse Oximetry 96 Oxygen Delivery Method Room Air Narrative Exam Narrative: Operative no apparent distress. Lungs are clear to auscultation no rales or rhonchi. Heart regular rate and rhythm without murmur gallop. Patient has a well-healed scar in her left clavicle and a palpable port. No cellulitis. Assessment & Plan Assessment & Plan narrative: Patient for port removal. I have discussed the procedure and rationale with her. Risks of bleeding infection and scarring discussed. She appears to understand wishes to proceed
--- NOTE | 2019-01-04 09:36 | PM.PREOP ---
Pre-operative Note Interval Note History & Physical reviewed/Exam performed by Physician: Yes Changes to H&P: No
[2019-01-04] MEDS: CLINDAMYCIN 900 MG/50 ML PIGGYBACK 50 MG IV (09:39)
--- NOTE | 2019-01-04 10:01 | SUR.OPER ---
Supine on padded OR bed, head on pillow, arm padded and tucked at side, legs uncrossed, safety belt at thigh, tape over blanket over lower legs .
[2019-01-04] MEDS: BUPIVACAINE 0.5% (PF) VIAL 30 ML INJ (10:13)
--- NOTE | 2019-01-04 10:35 | PM.OP.1 ---
Operative Date/Time/Diagnoses Date of procedure: 01/04/19 Time of procedure: 10:35 Pre-op diagnosis: Uterine cancer Post-op diagnosis: same Procedure & Clinicians Procedure: Removal Port-A-Cath Same procedure as scheduled: Yes Indications: Patient request Surgeon: Marcelo Hernandez Click Yes if Unassisted: Yes Anesthesia Type: General Operative Notes Findings: Port remove intact Closure Type: primary Specimen(s): none sent Prosthetic devices, grafts, tissues, transplants, or devices: Removed Port-A-Cath Estimated Blood Loss (mL): 5 Blood products transfused: none Procedure in detail: Patient was placed supine on the operating room table and underwent general LMA anesthesia. She was prepped and draped in the usual fashion. Incision made through the old scar and carried down level the port. The catheter was from surrounding structures. A U-stitch of 3 0 Vicryl was placed around the catheter. The catheter was removed and the stitch tied down to occlude the tract. The port was then dissected from the subcutaneous tissue using cautery and sharp dissection. It was removed without difficulty. A small portion of the wall that forms around the port was removed as well. Hemostasis was achieved. The subcu was closed with interrupted 3 0 Vicryl was. The skin was closed with interrupted 4 0 Vicryl subcuticular stitches and Steri-Strips. Dressing was applied the patient was awakened extubated taken recovery room good condition Complications: none Post-operative Condition: stable Disposition: PACU
--- NOTE | 2019-01-04 10:59 | SUR.PHASEI ---
stable pacu stay, dr beckman made aware, no new orders.
== END 2019-01-04 12:40 | disposition home or self-care (01) ==
PROVIDERS: Family Provider Family Medicine; PCP Family Medicine; Visit Provider Specialist
PROC: (CPT 36590; principal; 2019-01-04 09:45)
DX: Z45.2 Encounter for adjustment and management of vascular access device (principal); C55 Malignant neoplasm of uterus, part unspecified; E11.9 Type 2 diabetes mellitus without complications; Z79.84 Long term (current) use of oral hypoglycemic drugs
CPT/HCPCS: 36590; J2405; J2704; J3010

== ENCOUNTER → 2019-04-21 12:16 | Outpatient (CLI) | payer MEDICARE, SELFPAY ==
[2018-03-09 14:32] VITALS: BMI 27.1
--- NOTE | 2019-04-21 12:18 | DI.CT.S_ITS ---
PROCEDURE: CT ABDOMEN PELVIS W CON INDICATIONS: Uterine cancer TECHNIQUE: After the administration of oral and intravenous contrast, 5 mm thick sections acquired from the diaphragms to the symphysis. 5 mm thick coronal and sagittal reformats were performed. For radiation dose reduction, the following was used: automated exposure control, adjustment of mA and/or kV according to patient size. COMPARISON: None. FINDINGS: Image quality: Excellent. ABDOMEN: Lung bases: Lung bases are clear. Heart size is normal. Solid organs: There is severe hepatic steatosis. Liver is normal in size and enhancement. Gallbladder is normal. Biliary system is non-dilated. Pancreas enhances normally. Spleen is normal in size and enhancement. No adrenal nodules. Kidneys are normal in size and enhancement, without hydronephrosis. Peritoneum and bowel: Stomach, small bowel, and colon loops are normal in caliber and wall thickness. Appendix is normal. No free fluid or air. Nodes and vessels: No retroperitoneal or mesenteric adenopathy. Prominent left para-aortic and right external iliac lymph nodes measure 8-9 mm, within upper limits of normal based on size criteria. There are sigmoid diverticula. No active diverticulitis. Aorta and inferior vena cava are normal in caliber. Severe atherosclerosis. Miscellaneous: No ventral hernias. PELVIS: Genitourinary: Pelvis is partially obscured by metallic artifacts from bilateral hip prostheses. Bladder wall thickness is normal. Miscellaneous: No inguinal hernias or adenopathy. Bones: No suspicious bony lesions. No vertebral body compression fractures. Severe degenerative changes in lumbar spine. IMPRESSION: 1. No definitive CT finding to suggest recurrent or metastatic disease. 2. Prominent yet still normal-sized left para-aortic and right external iliac lymph nodes are noted. 3. Sigmoid diverticulosis without diverticulitis. 4. Hepatic steatosis. Dictated by: Olayinka Pleitez M.D. on 04/21/2019 at 15:10 Approved by: Olayinka Pleitez M.D. on 04/21/2019 at 15:21
[2019-04-21 12:39] LABS: Add Manual Diff / Slide Review NO; Basophils Absolute Auto 0 /uL (0-100); Basophils Percent Auto 0.7 % (0-2); Eosinophils Absolute Auto 400 /uL (0-450); Eosinophils Percent Auto 5.2 % (2-4); Hematocrit 36.7 % (36-46); Hemoglobin 12.5 g/dL (12.0-16.0); Lymphocytes Absolute Auto 1100 /uL (1100-4500); Mean Corpuscular HGB Conc 34.1 % (30-36); Mean Corpuscular Hemoglobin 27.4 PG (26-34); Mean Corpuscular Volume 80.4 fL (80-100); Monocytes Absolute Auto 400 /uL (0-900); Monocytes Percent Auto 5.1 % (3-14); Neutrophils Absolute Auto 5200 /uL (1500-7000); Platelet Count 250 X10^3/uL (150-400); Red Blood Cell Count 4.57 X10^6/uL (4.0-5.2); Red Cell Distribution Width 13.6 % (11.6-14.8); White Blood Cell Count 7.1 X10^3/uL (4.5-11.0)
[2019-04-21 12:53] LABS: Alanine Aminotransferase 96 IU/L (<35); Albumin 4.5 g/dL (3.5-5.0); Albumin Globulin Ratio 1.5 (1.0-2.8); Alkaline Phosphatase 105 U/L (38-126); Aspartate Aminotransferase 65 IU/L (14-36); BUN Creatinine Ratio 18.8 (6-22); Bilirubin Total 0.4 mg/dL (0.2-1.3); Blood Urea Nitrogen 15 mg/dL (7-17); Calcium 9.7 mg/dL (8.4-10.2); Carbon Dioxide 27 mmol/L (22-32); Chloride 98 mmol/L (98-107); Estimated Glomerular Filt Rate > 60.0 mL/min (>60); Glucose 323 mg/dL (80-110); HEMOLYSIS < 15 (0-50); Potassium 3.9 mmol/L (3.4-5.1); Sodium 137 mmol/L (137-145); Total Protein 7.5 g/dL (6.3-8.2)
[2019-04-21 13:23] LABS: Cancer Antigen 125 < 6 U/mL (0-35)
== END ==
PROVIDERS: PCP Family Medicine
DX: C55 Malignant neoplasm of uterus, part unspecified (principal); K57.30 Diverticulosis of large intestine without perforation or abscess without bleeding; K76.0 Fatty (change of) liver, not elsewhere classified; Z96.643 Presence of artificial hip joint, bilateral
CPT/HCPCS: 36415; 74177; 80053; 85025; 86304; Q9967

== ENCOUNTER → 2019-10-25 11:03 | Outpatient (CLI) | payer MEDICARE, SELFPAY ==
[2018-03-09 14:32] VITALS: BMI 27.1
== END ==
PROVIDERS: PCP Family Medicine; Referring Provider Family Medicine; Visit Provider Internal Medicine
DX: C54.1 Malignant neoplasm of endometrium (principal)
CPT/HCPCS: 36415

== ENCOUNTER → 2020-12-27 10:56 | Outpatient (CLI) | payer MEDICARE, SELFPAY ==
[2018-03-09 14:32] VITALS: BMI 27.1
[2020-12-27 11:13] LABS: Add Manual Diff / Slide Review NO; Basophils Absolute Auto 0 /uL (0-100); Basophils Percent Auto 0.5 % (0-2); Eosinophils Absolute Auto 300 /uL (0-450); Eosinophils Percent Auto 3.5 % (2-4); Hemoglobin 11.5 g/dL (12.0-16.0); Lymphocytes Absolute Auto 1100 /uL (1100-4500); Lymphocytes Percent Auto 12.7 % (25-40); Mean Corpuscular HGB Conc 33.8 % (30-36); Mean Corpuscular Hemoglobin 27.3 PG (26-34); Monocytes Absolute Auto 400 /uL (0-900); Monocytes Percent Auto 4.3 % (3-14); Neutrophils Absolute Auto 7000 /uL (1500-7000); Platelet Count 298 X10^3/uL (150-400); Red Cell Distribution Width 13.9 % (11.6-14.8); White Blood Cell Count 8.8 X10^3/uL (4.5-11.0)
[2020-12-27 11:31] LABS: Alanine Aminotransferase 38 IU/L (<35); Albumin 4.4 g/dL (3.5-5.0); Albumin Globulin Ratio 1.6 (1.0-2.8); Alkaline Phosphatase 79 U/L (38-126); Aspartate Aminotransferase 34 IU/L (14-36); BUN Creatinine Ratio 18.9 (6-22); Bilirubin Total 0.4 mg/dL (0.2-1.3); Blood Urea Nitrogen 18 mg/dL (7-17); Calcium 9.7 mg/dL (8.4-10.2); Carbon Dioxide 28 mmol/L (22-32); Chloride 100 mmol/L (98-107); Globulin 2.7 g/dL (1.7-4.1); Glucose 327 mg/dL (80-110); HEMOLYSIS < 15 (0-50); Sodium 136 mmol/L (137-145); Total Protein 7.1 g/dL (6.3-8.2)
[2020-12-27 12:02] LABS: Cancer Antigen 125 < 5.5 U/mL (0-35)
== END ==
PROVIDERS: PCP Family Medicine; Referring Provider Internal Medicine Medical Oncology; Visit Provider Internal Medicine Medical Oncology
DX: C54.1 Malignant neoplasm of endometrium (principal)
CPT/HCPCS: 36415; 80053; 85025; 86304

== ENCOUNTER → 2021-04-06 15:02 | Outpatient (CLI) | payer MEDICARE, SELFPAY ==
[2018-03-09 14:32] VITALS: BMI 27.1
--- NOTE | 2021-04-06 | DI.RAD.S_ITS ---
PROCEDURE: XR CHEST 2V INDICATIONS: Myalgia TECHNIQUE: 2 views of the chest were acquired. COMPARISON: [facility], CR, XR CHEST 1V, 10/29/2018, 16:17. FINDINGS: Surgical changes and devices: None. Lungs and pleura: Lungs are clear. No pleural effusions or pneumothorax. Mediastinum: Mediastinal contours are normal. Heart size is normal. Bones and chest wall: No suspicious bony abnormalities. Soft tissues appear unremarkable. IMPRESSION: No acute pulmonary process. Dictated by: Sheyla Robledo M.D. on 04/06/2021 at 16:12 Approved by: Sheyla Robledo M.D. on 04/06/2021 at 16:15
== END ==
PROVIDERS: PCP Family Medicine; Referring Provider Family Medicine; Visit Provider Family Medicine
DX: M79.10 Myalgia, unspecified site (principal)
CPT/HCPCS: 71046

== ENCOUNTER → 2023-07-18 13:20 | Outpatient (CLI) | payer MEDICARE, SELFPAY ==
[2018-03-09 14:32] VITALS: BMI 27.1
[2023-07-18 13:56] LABS: Add Manual Diff / Slide Review NO; Basophils Absolute Auto 0 /uL (0-100); Basophils Percent Auto 0.5 % (0-2); Eosinophils Absolute Auto 300 /uL (0-450); Hematocrit 34.5 % (36-46); Hemoglobin 11.9 g/dL (12.0-16.0); Lymphocytes Absolute Auto 1600 /uL (1100-4500); Lymphocytes Percent Auto 15.2 % (25-40); Mean Corpuscular HGB Conc 34.4 % (30-36); Mean Corpuscular Hemoglobin 28.2 PG (26-34); Mean Corpuscular Volume 81.9 fL (80-100); Monocytes Absolute Auto 600 /uL (0-900); Monocytes Percent Auto 5.9 % (3-14); Neutrophils Absolute Auto 7800 /uL (1500-7000); Neutrophils Percent Auto 75.4 % (50-75); Platelet Count 311 X10^3/uL (150-400); Red Blood Cell Count 4.21 X10^6/uL (4.0-5.2); Red Cell Distribution Width 13.4 % (11.6-14.8); White Blood Cell Count 10.4 X10^3/uL (4.5-11.0)
[2023-07-18 14:00] LABS: Alanine Aminotransferase 37 IU/L (<35); Albumin 4.4 g/dL (3.5-5.0); Albumin Globulin Ratio 1.5 (1.0-2.8); Alkaline Phosphatase 82 U/L (38-126); Aspartate Aminotransferase 29 IU/L (14-36); BUN Creatinine Ratio 19.8 (6-22); Bilirubin Total 0.5 mg/dL (0.2-1.3); Blood Urea Nitrogen 25 mg/dL (7-17); Carbon Dioxide 25 mmol/L (22-32); Chloride 101 mmol/L (98-107); Estimated Glomerular Filt Rate 45 mL/min (>60); Glucose 280 mg/dL (80-110); HEMOLYSIS < 15 (0-50); Sodium 135 mmol/L (137-145); Total Protein 7.4 g/dL (6.3-8.2)
[2023-07-18 14:31] LABS: Cancer Antigen 125 < 5.5 U/mL (0-35)
[2023-07-18 15:57] LABS: Cholesterol 252 mg/dL (140-199); HDL Cholesterol 44 mg/dL (40-60); LDL Cholesterol Calculated 135 mg/dL (<100); Triglycerides 363 mg/dL (35-150)
[2023-07-18 16:27] LABS: Vitamin D 25 Hydroxy (D3) 116 ng/mL (30.0-100.0)
[2023-07-18 16:42] LABS: Vitamin B12 516 pg/mL (239-931)
[2023-07-19 14:31] LABS: Magnesium 1.8 mg/dL (1.6-2.3)
[2023-07-19 15:24] LABS: Thyroid Stimulating Hormone 2.89 uIU/mL (0.47-4.68)
== END ==
PROVIDERS: PCP Family Medicine; Referring Provider Internal Medicine Medical Oncology; Visit Provider Internal Medicine Medical Oncology
DX: E11.65 Type 2 diabetes mellitus with hyperglycemia (principal); C54.1 Malignant neoplasm of endometrium; I10 Essential (primary) hypertension; E03.9 Hypothyroidism, unspecified; E55.9 Vitamin D deficiency, unspecified; E53.9 Vitamin B deficiency, unspecified; E78.2 Mixed hyperlipidemia; M12.80 Other specific arthropathies, not elsewhere classified, unspecified site; Z79.899 Other long term (current) drug therapy
CPT/HCPCS: 36415; 80053; 80061; 82306; 82607; 83735; 84443; 85025; 86304

== ENCOUNTER → 2023-08-14 15:07 | Outpatient (CLI) | payer MEDICARE, SELFPAY ==
[2018-03-09 14:32] VITALS: BMI 27.1
--- NOTE | 2023-08-14 15:09 | DI.MG.S_ITS ---
BILATERAL DIGITAL SCREENING MAMMOGRAM 3D/2D WITH CAD: 08/14/2023 CLINICAL: Routine screening. Comparison is made to exams dated: 06/29/2018 mammogram, 03/13/2016 mammogram - [facility], and 08/11/2009 mammogram - [facility]. There are scattered areas of fibroglandular density in both breasts (category b / 25%-50% glandular tissue). Current study was also evaluated with a Computer Aided Detection (CAD) system. There are benign calcifications in both breasts. No significant masses, calcifications, or other findings are seen in either breast. There has been no significant interval change. IMPRESSION: BENIGN There is no mammographic evidence of malignancy. A 1 year screening mammogram is recommended. Based on the Tyrer Cuzick model (a risk assessment model) the patient's lifetime risk is 2.5% and her 10 year risk is 2.3%. According to the ACR, ACS, and NCCN guidelines, an annual breast MRI exam along with mammogram is recommended if the patient's lifetime risk is 20% or greater. This exam was interpreted at Station ID: [id number]. NOTE: For mammograms, a report in lay terms will be sent to the patient. Approximately 15% of breast malignancies will not be visualized mammographically. In the management of a palpable breast mass, a negative mammogram must not discourage biopsy of a clinically suspicious lesion. Electronically Signed By: Crystal [email or web address]:08/14/2023 16:12:30 letter sent: Normal Exam ACR BI-RADS Category 2: Benign Finding(s) [id number]
--- NOTE | 2023-08-14 15:09 | DI.CT.S_ITS ---
PROCEDURE: CT LE RT WO CON INDICATIONS: EVALUATE POSSIBLE RIGHT HIP FX TECHNIQUE: Noncontrast 3 mm axial sections acquired through the bony pelvis. Additional 3 mm axial sections acquired through the symptomatic hip joint, with coronal and sagittal reformats. COMPARISON: None. FINDINGS: Image quality: Excellent. Bones: The sacrum is intact. No sacral ala fracture. Mild degenerative changes of bilateral sacroiliac joints. Status post right total hip arthroplasty, in near anatomic alignment. No hardware complication. No periprosthetic fracture. Status post left total hip arthroplasty, in near anatomic alignment. No hardware complication. Heterotopic ossification about the left greater tuberosity. Soft tissues: Moderate calcification of the distal abdominal aorta. The bladder is unremarkable. The uterus is not visualized. No adnexal masses. No bowel obstruction in the pelvis. No inguinal lymphadenopathy. No significant stranding in the right hip. No intramuscular hematoma in the right pelvis. IMPRESSION: Status post bilateral total hip arthroplasty, in near anatomic alignment. No hardware complication. No right hip fracture. No pelvic fracture. Dictated by: Courtney Navas M.D. on 08/14/2023 at 17:49 Approved by: Courtney Navas M.D. on 08/14/2023 at 17:54
== END ==
PROVIDERS: PCP Family Medicine; Referring Provider Family Medicine; Visit Provider Family Medicine
DX: Z12.31 Encounter for screening mammogram for malignant neoplasm of breast (principal); R92.323 Mammographic fibroglandular density, bilateral breasts; Z96.641 Presence of right artificial hip joint; I70.0 Atherosclerosis of aorta
CPT/HCPCS: 73700; 77063; 77067

== ENCOUNTER → 2024-10-26 11:50 | Outpatient (CLI) | payer MEDICARE, SELFPAY ==
[2018-03-09 14:32] VITALS: BMI 27.1
--- NOTE | 2024-10-26 11:53 | DI.MG.S_ITS ---
MM screening mammo BI: 10/26/2024. BI-RADS: 2 CLINICAL: 74-year old female for bilateral screening mammogram. Tyrer-Cuzick lifetime risk of 1.6%. No personal or first-degree family history of breast cancer. PRIOR EXAMS 08/14/2023, 06/29/2018, 03/13/2016. MAMMOGRAPHY TECHNIQUE: 2D and 3D (tomosynthesis) digital mammographic views obtained, with additional images as needed for full coverage. Current study was also evaluated with a Computer Aided Detection (CAD) system. DENSITY B. There are scattered areas of fibroglandular density. MAMMOGRAPHY FINDINGS Bilateral: Benign-appearing calcifications noted. There are no suspicious masses, calcifications, or other findings in the breast. No significant change from comparison. IMPRESSION: * No evidence of malignancy with benign findings. RECOMMENDATIONS Bilateral * Annual screening mammography. OVERALL ASSESSMENT CATEGORY BI-RADS-2: Benign. [employer] recommends annual screening mammography beginning at age 40 for women with average risk of breast cancer. ELECTRONICALLY SIGNED: Salina Castle M.D. on 10/26/2024 at 05:11:17 PM PT Interpreting Station ID: [id number]
== END ==
LOC: MAMMO 11:51
PROVIDERS: PCP Family Medicine; Referring Provider Family Medicine; Visit Provider Family Medicine
DX: Z12.31 Encounter for screening mammogram for malignant neoplasm of breast (principal)
CPT/HCPCS: 77063; 77067